=== PATIENT | female | born 1980 | race Hispanic/Latino ===

== ENCOUNTER → 2025-02-08 | Day surgery (SDC) | payer OTHER ==
[2025-01-29 11:57] LABS: ANION GAP 13.1 mmol/L (8-16); CALCIUM 8.6 mg/dL (8.4-10.2); CREATININE, SERUM 0.76 mg/dL (0.57-1.11); POTASSIUM 4.1 mmol/L (3.5-5.1)
[~2025-02-08] MED LIST: ACETAMINOPHEN 1000 MG/100 ML 100 ML IV ONE; CELEBREX100 MG PO; DEXAMETHASONE SOD PHOS INJ 4 MG/ML SDV ONE; FAMOTIDINE 20 MG/2 ML VIAL IV ONE; FENTANYL CITRATE/PF 100MCG/2 ML INJ ONE; FERROUS SULFAT325 MG PO; HYDROCODONE/APAP 7.5MG-325MG 1 EA TAB ONE; LIDOCAINE HCL 2% LOCAL INJ 5 ML SDV VIAL INJ ONE; METFORMIN HCL500 MG PO; MIDAZOLAM HCL 2 MG/2 ML VIAL ONE; PROPOFOL IV EMULSION 10 MG/ML 20 ML VIAL ONE; SEVOFLURANE INHAL SOLN 250 ML PEN BTL ONE; VIT D PO
[2025-02-08] MEDS: LACTATED RINGER'S 1,000 ML ONE (08:45)
[2025-02-08 09:27] VITALS: TEMP 97.7
[2025-02-08] MEDS: FENTANYL CITRATE/PF 100MCG/2 ML INJ IV ONE ×2 (09:52→10:00)
[2025-02-08] MEDS: HYDROCODONE/APAP 7.5MG-325MG 1 EA TAB PO ONE (10:15)
[2025-02-08 10:30] VITALS: BP 116/70; PULSE 72; RESP 16; O2SAT 99
== END | disposition home or self-care (01) ==
LOC: OR 06:36
PROVIDERS: ATTEND Specialist
DX: S83.231A Complex tear of medial meniscus, current injury, right knee, initial encounter (principal); M22.41 Chondromalacia patellae, right knee; E11.9 Type 2 diabetes mellitus without complications; Z79.84 Long term (current) use of oral hypoglycemic drugs; F41.9 Anxiety disorder, unspecified; E66.9 Obesity, unspecified; Z68.29 Body mass index [BMI] 29.0-29.9, adult; Z71.82 Exercise counseling; X58.XXXA Exposure to other specified factors, initial encounter; Z01.810 Encounter for preprocedural cardiovascular examination; Z01.812 Encounter for preprocedural laboratory examination; Z79.899 Other long term (current) drug therapy
CPT/HCPCS: 29881; 36415 ×2; 80048; 81025; 82948; 93005; J0131; J0690; J1100; J2003; J2250; J2704; J3010; J7121; J1308